=== PATIENT | female | born 1955 ===

== ENCOUNTER → 2022-07-24 | Outpatient (CLI) | payer MEDICARE, OTHER ==
[2022-07-25 16:10] LABS: HPV 16 Negative (Negative); HPV 18 Negative (Negative); HPV OTHER HR TYPES Negative (Negative)
== END | disposition home or self-care (01) ==
LOC: LAB 16:41 → LAB SHORT 16:41
PROVIDERS: Family Medicine
DX: Z01.419 Encounter for gynecological examination (general) (routine) without abnormal findings (principal)
CPT/HCPCS: 87624; G0123

== ENCOUNTER → 2023-08-05 | Outpatient (CLI) | payer MEDICARE, OTHER ==
[2023-08-07 15:12] LABS: HPV 16 Negative (Negative); HPV 18 Negative (Negative); HPV OTHER HR TYPES Negative (Negative)
== END ==
LOC: LAB SHORT 17:37 → LAB 17:37
PROVIDERS: Family Medicine
DX: Z08 Encounter for follow-up examination after completed treatment for malignant neoplasm (principal); Z85.41 Personal history of malignant neoplasm of cervix uteri
CPT/HCPCS: 87624; 88175

== ENCOUNTER 2024-07-16 10:16 | Day surgery (SDC) | payer MEDICARE, OTHER ==
[~2024-07-16] VITALS: Ht 165.1 cm; Wt 115.4 kg
[~2024-07-16 10:16] MED LIST: ALLEGRA ALLERG180 MG PO; Balanced Salt Epinephrine Irrigation Solution 500 mL IR SCH; FAMO20 PO; LATANOPROST2.5 M3; LISI20 PO; LOVA40 PO; Lidocaine HCl/Pf 1% 5 ML VIAL XX SCH; MAGNESIUM OXID500 MG PO; Moxifloxacin HCL 0.5 MG/0.1 ML 0.4MLSYR LEFTEYE SCH; NS 500 ML IV ONE; OMEP20ER PO; PHENYLEPHRINE\\TROPICAMIDE\\TETRACAINE OPHTHALMIC DILATING SOLN LEFTEYE PRN; Povidone-Iodine 450 DROP/30 ML Solution LEFTEYE SCH; Povidone-Iodine 450 DROP/30 ML Solution ONE; Tetracaine HCl/Pf 0.5% Opth Soln 4 ml ONE; Triamcinolone Inj Susp 40 MG / ML 1ML Vial INJ SCH; Triamcinolone Inj Susp 40 MG / ML 1ML Vial ONE; VITAMIN D3
[2024-07-16] MEDS ORDERED: NS 500 ML IV ONE (10:47)
[2024-07-16] MEDS ORDERED: Midazolam HCl 1MG / ML 2ML Vial ONE (11:35)
--- NOTE | 2024-07-16 11:47 | NUR ---
07/16/24 1147 Ciara Tinsley EYE BED, PILLOW UNDER KNEES, RAILS UP
[2024-07-16 12:04] VITALS: BP 122/91
== END 2024-07-16 12:16 | disposition home or self-care (01) ==
LOC: ORSCSDS 10:16
PROVIDERS: Ophthalmology
PROC: 08RK3JZ Replacement of Left Lens with Synthetic Substitute, Percutaneous Approach (ICD-10-PCS; principal; 2024-07-16 12:00)
DX: H25.812 Combined forms of age-related cataract, left eye (principal); Z96.1 Presence of intraocular lens; I10 Essential (primary) hypertension; K21.9 Gastro-esophageal reflux disease without esophagitis; E66.01 Morbid (severe) obesity due to excess calories; Z68.41 Body mass index [BMI] 40.0-44.9, adult; Z87.891 Personal history of nicotine dependence; H40.9 Unspecified glaucoma; Z79.899 Other long term (current) drug therapy
CPT/HCPCS: J2250; J3301; J7040; V2632

== ENCOUNTER → 2024-11-23 | Outpatient (CLI) | payer MEDICARE, OTHER ==
[~2024-11-23] MED LIST changes: -Balanced Salt Epinephrine Irrigation Solution 500 mL IR SCH; -Lidocaine HCl/Pf 1% 5 ML VIAL XX SCH; -Moxifloxacin HCL 0.5 MG/0.1 ML 0.4MLSYR LEFTEYE SCH; -NS 500 ML IV ONE; -PHENYLEPHRINE\\TROPICAMIDE\\TETRACAINE OPHTHALMIC DILATING SOLN LEFTEYE PRN; -Povidone-Iodine 450 DROP/30 ML Solution LEFTEYE SCH; -Povidone-Iodine 450 DROP/30 ML Solution ONE; -Tetracaine HCl/Pf 0.5% Opth Soln 4 ml ONE; -Triamcinolone Inj Susp 40 MG / ML 1ML Vial INJ SCH; -Triamcinolone Inj Susp 40 MG / ML 1ML Vial ONE
[2024-11-27 11:54] LABS: HPV HIGH RISK BY TMA Not Detected; HPV SOURCE Vaginal
== END | disposition home or self-care (01) ==
LOC: LAB SHORT 17:16 → LAB 17:16
PROVIDERS: Family Medicine
DX: Z01.419 Encounter for gynecological examination (general) (routine) without abnormal findings (principal)
CPT/HCPCS: 87624; G0123